=== PATIENT | female | born 1945 | race Caucasian/White ===

== ENCOUNTER 2016-12-14 08:43 | Outpatient (CLI) | payer OTHER | END 2016-12-14 23:00 | LOC: LAB SRH 08:43 | DX: D64.9 Anemia, unspecified (principal); E11.9 Type 2 diabetes mellitus without complications; E78.5 Hyperlipidemia, unspecified | CPT/HCPCS: 90074; 90100; 91282; 91286; 92668; 92670; 92690; 95059 ==